=== PATIENT | male | born 1955 | race Caucasian/White ===

== ENCOUNTER 2018-02-25 09:05 | Day surgery (SDC) | END 2018-02-25 14:31 | disposition home or self-care (01) ==

== ENCOUNTER 2018-06-30 07:26 | Day surgery (SDC) | payer OTHER ==
[2018-06-30] VITALS (10 sets, daily range): BP systolic 109–131; BP diastolic 63–76; PULSE 50–60; RESP 14–18; Ht 170.2 cm; Wt 67.9 kg
[~2018-06-30] VITALS: Ht 170.2 cm; Wt 67.9 kg
[~2018-06-30 07:26] MED LIST: ASPI-903 PO; LEVOTHYROXINE DAILY; LISINOPRIL DAILY; LORA1TAB PO; PEPCID DAILY; [UNRECOGNIZED DRUG - OTHER]; [UNRECOGNIZED DRUG - OTHER]
--- NOTE | 2018-06-30 07:40 | NUR ---
RN NOTE: OR CHARGE NURSE CALLED INFORMED ME DR WANTS PT DOWN SOON POSSIBLE, THEY WILL GIVE THE EYE DROPS DOWNSTAIRS.
[2018-06-30] MEDS ORDERED: LISI-471 PO (07:51)
[2018-06-30] MEDS ORDERED: PANT40TA3 PO (07:52)
[2018-06-30] MEDS ORDERED: LORA10TA3 PO (07:52)
[2018-06-30] MEDS ORDERED: FER325 PO (07:53)
[2018-06-30] MEDS ORDERED: METO-448 PO (07:53)
[2018-06-30] MEDS ORDERED: LEVO137T26 PO (07:53)
[2018-06-30] MEDS ORDERED: MIRT30TA5 PO (07:54)
[2018-06-30] MEDS ORDERED: OLAN10TA7 PO (07:54)
[2018-06-30] MEDS ORDERED: PRED5DRO20 LEFT EYE (07:56)
[2018-06-30] MEDS ORDERED: TOBR5DRO46 LEFT EYE (07:57)
[2018-06-30] MEDS ORDERED: EPINEPHrine 1 MG INJ ONE ×2 (08:12→09:39)
[2018-06-30] MEDS ORDERED: GENTAMICIN 80 MG INJ ONE (08:12)
[2018-06-30] MEDS ORDERED: NA HYALURONATE/CHONDROITIN 0.5 ML SYG ONE (08:12)
[2018-06-30] MEDS ORDERED: TOBRAMYCIN/DEXAMETH 3.5 GM OPH OINT ONE (08:12)
[2018-06-30] MEDS ORDERED: VANCOMYCIN 1 GM INJ ONE (08:12)
[2018-06-30] MEDS ORDERED: TETRACAINE 0.5% 4 ML OPH ONE (08:12)
--- NOTE | 2018-06-30 08:15 | NUR ---
RN NOTE: PT DOWN TO HOLDING, INFORMED [place] IN HOLDING ABOUT EYE DROPS
[2018-06-30] MEDS ORDERED: NEOMYC/POLYMYX/DEXAM 3.5GM OPH OINT OPER ONE (08:30)
[2018-06-30] MEDS ORDERED: BALANCED SALT SOLN OPH IRRIG 500 ML, EPINEPHrine 0.1 MG, GENTAMICIN 4 MG, VANCOMYCIN 10 MG IRR SCH ×4 (08:30)
[2018-06-30] MEDS ORDERED: TOBRAMYCIN 0.3% 5 ML OPH OPER SCH (08:30)
[2018-06-30] MEDS ORDERED: TETRACAINE 0.5% 4 ML OPH OPER SCH (08:30)
[2018-06-30] MEDS ORDERED: LIDOCAINE 4% (MPF) 5 ML INJ INJ SCH (08:30)
[2018-06-30] MEDS ORDERED: TROPICAMIDE 1% 3 ML OPH OPER SCH (08:30)
[2018-06-30] MEDS ORDERED: PHENYLephrine 2.5% 15 ML OPH OPER SCH (08:30)
[2018-06-30] MEDS ORDERED: APRACLONIDINE 1% 0.1 ML OPH OPER PRN (08:30)
[2018-06-30] MEDS ORDERED: ACETAMINOPHEN 500 MG TAB PO ONE (08:30)
[2018-06-30] MEDS ORDERED: ACETAZOLAMIDE 250 MG TAB PO PRN (08:30)
[2018-06-30] MEDS ORDERED: PREDNISOLONE ACET 1% 5 ML OPH OPER SCH (08:30)
[2018-06-30] MEDS ORDERED: LIDOCAINE 2% (SDV) 5 ML INJ ONE (08:36)
--- NOTE | 2018-06-30 08:38 | PREAC ---
Date/Time of Note Date/Time of Note DATE: 06/30/18 TIME: 08:36 Anesthesia Eval and Record Evaluation Time Pre-Procedure Interview DATE: 06/30/18 TIME: 08:36 Age 63 Sex male NPO: 8 hrs Preoperative diagnosis left eye cataract Planned procedure left eye cataract extraction with lens implant Past Medical History Past Medical History: Includes Cardio: HTN, VT, CAD, PTCA/Stent Endo: Hypothyroid Neuro: CVA GI: GERD Psych: Depression Surgery & Anesthesia Issues No known issue Meds Anticoagulation: No Beta Hari within 24 hr: Yes Reason Beta Hari not given: Bradycarida, Hypotension Reported Medications Tobramycin Sulfate* (Tobrex*) 0.3% - 5 Ml Drops, 1 DROP LEFT EYE QID, #1 EA 06/30/18 Prednisolone Acetate* (Pred Forte*) 5 Ml Susp, 1 DROP LEFT EYE QID, EA 06/30/18 Mirtazapine* (Mirtazapine*) 30 Mg Tablet, 30 MG PO HS, TAB 06/30/18 Olanzapine* (Zyprexa*) 10 Mg Tablet, 10 MG PO DAILY, #30 TAB 06/30/18 Levothyroxine Sodium* (Levoxyl*) 137 Mcg Tablet, 137 MCG PO BEFORE BREAKFAST, # 30 TAB 06/30/18 Ferrous Sulfate* (Ferrous Sulfate*) 325 Mg Tabec, 325 MG PO DAILY, TAB 06/30/18 Metoprolol Tartrate* (Lopressor*) 25 Mg Tab, 25 MG PO BID, #60 TAB 06/30/18 Pantoprazole* (Protonix*) 40 Mg Tablet.dr, 40 MG PO DAILY, TAB 06/30/18 Loratadine* (Loratadine*) 10 Mg Tablet, 10 MG PO DAILY, #30 TAB 06/30/18 Lisinopril* (Lisinopril*) 20 Mg Tablet, 20 MG PO DAILY, #30 TAB 06/30/18 Discontinued Reported Medications Lorazepam* (Lorazepam*) 1 Mg Tablet, 1 MG PO HS PRN for ANXIETY, #30 TAB 02/25/18 Aspirin* (Aspirin* Chew) 81 Mg Tab.chew, 81 MG PO DAILY, TAB.CHEW 02/25/18 [Ativan Hs] No Conflict Check 02/25/18 [Pravastatin Daily] No Conflict Check 02/25/18 [Levothyroxine Daily] No Conflict Check 02/25/18 [Lisinopril Daily] No Conflict Check 02/25/18 [Pepcid Daily] No Conflict Check 02/25/18 Current Medications Tropicamide (Mydriacyl 1%) 1 drop Q5 MIN X3 OPER ; Start 06/30/18 at 08:30 Phenylephrine HCl (Ak-Dilate 2.5%) 1 drop Q5 MIN X 3 OPER ; Start 06/30/18 at 08:30 Tetracaine HCl (Tetracaine 0.5% Steri-Unit Josette) 2 drop ONCE (PRE-OP) OPER ; Start 06/30/18 at 08:30 Lidocaine (Xylocaine 4% (Mpf)) 5 ml INTRA-OP INJ ; Start 06/30/18 at 08:30 Sod Cl/Ca Cl/Mg Cl/Pot Cl/ Epinephrine/ Gentamicin Sulfate/ Vancomycin HCl INTRA-OP IRR ; Start 06/30/18 at 08:30 Tobramycin Sulfate (Tobrex 0.3% Oph Drop) 1 drop INTRA-OP OPER ; Start 06/30/18 at 08:30 Prednisolone Acetate (Pred-Forte 1%) 1 drop INTRA-OP OPER ; Start 06/30/18 at 08:30 Acetazolamide (Diamox) 250 mg POST-OP PRN PO X1 IF TRABECULECTOMY PERFORMED; Start 06/30/18 at 08:30 Apraclonidine HCl (Iopidine 1% Oph) 1 drop POST-OP PRN OPER IF UNABLE TO TAKE DIAMOX; Start 06/30/18 at 08:30 Meds reviewed: Yes Allergies Coded Allergies: No Known Allergy (Unverified , 06/30/18) Allergies Reviewed: Yes Labs/Studies Labs Reviewed: Reviewed by anesthesiologist test: N/A Studies: ECG (sinus rhythm) Pre-procedure Exam Airway: Adequate mouth opening, Adequate thyromental dist Mallampati: Mallampati II Teeth: Normal Lung: Normal Heart: Normal ASA Physical Status ASA physical status: 3 Emergency: None Planned Anesthetic General/MAC: MAC Planned Pain Management Parenteral pain med Pre-operative Attestations Prior to commencing anesthesia and surgery, the patient was re-evaluated, there was verification of: *The patient's identity *The results of appropriate recent lab work and preoperative vital signs *The above evaluation not changing prior to induction *Anesthetic plan, risk benefits, alternative and complications discussed with patient/family; questions answered; patient/family understands, accepts and wishes to proceed. MAKEDA MAGDALENO MD Jun 30, 2018 08:38
[2018-06-30] MEDS ORDERED: PROCHLORPERAZINE 10 MG INJ IV PRN (09:00)
[2018-06-30] MEDS ORDERED: LABETALOL HCL 20MG INJ IV PRN (09:00)
[2018-06-30] MEDS ORDERED: ONDANSETRON 4 MG INJ IV PRN (09:00)
[2018-06-30] MEDS ORDERED: MEPERIDINE 25 MG INJ IV PRN (09:00)
[2018-06-30] MEDS ORDERED: FENTAnyl 50 MCG/ML VIAL IV PRN (09:00)
[2018-06-30] MEDS ORDERED: DIPHENHYDRAMINE 50 MG INJ IV PRN (09:00)
[2018-06-30] MEDS ORDERED: hydrALAzine 20 MG INJ IV PRN (09:00)
[2018-06-30] MEDS ORDERED: HYDROmorphONE 1 MG/5 ML IV SYRINGE IV PRN ×3 (09:00)
[2018-06-30] MEDS ORDERED: TRYPAN BLUE 0.5 ML SYG IO ONE (09:12)
[2018-06-30] MEDS ORDERED: MIDAZOLAM 1 MG/ML 2 ML INJ ONE (09:22)
[2018-06-30] MEDS ORDERED: FENTAnyl 50 MCG/ML VIAL ONE (09:24)
--- NOTE | 2018-06-30 10:22 | PAC ---
Date/Time of Note Date/Time of Note DATE: 06/30/18 TIME: 10:21 Post-Anesthesia Notes Post-Anesthesia Note Last documented vital signs Vital Signs Date Temp Pulse Resp B/P (MAP) Pulse Ox O2 O2 Flow FiO2 Time Delivery Rate 06/30/18 97.9 60 18 131/76 18 Room Air 08:48 (94) Activity: WNL Respiratory function: WNL Cardiovascular function: WNL Mental status: Baseline Pain reasonably controlled: Yes Hydration appropriate: Yes Nausea/Vomiting absent: Yes Comments BP: 101/60 HR: 60 RR: 15 T: 98 SaO2: 99% MAKEDA MAGDALENO MD Jun 30, 2018 10:22
--- NOTE | 2018-06-30 11:46 | OPR ---
Date/Time of Note Date/Time of Note DATE: 06/30/18 TIME: 11:41 Operative Report Preoperative Diagnosis CatatCT LEFT EYE Postoperative Diagnosis SAME Operation/Procedure Performed CATARACT REMOVAL WITH LENS IMPLANT OS Surgeon see signature line Political Research Scientist NONE Anesthesia Type: MAC Estimated Blood Loss: none Transfusion none Specimen NONE Grafts/Implants none Complications none Procedure Description CATARACT REMOVAL WITH LENS IMPLANT LEFT EYE CHAKA HERNANDEZ MD Jun 30, 2018 11:46
--- NOTE | 2018-06-30 11:48 | NUR ---
D/C INSTRUCTIONS UNDERSTOOD, D/C CRITERIA MET, POST OP SITE CLEAN AND DRY, DENIES PAIN
== END 2018-06-30 11:48 | disposition home or self-care (01) ==
LOC: SDS 07:26
PROVIDERS: ATTEND Ophthalmology
DX: H26.8 Other specified cataract (principal); Z86.73 Personal history of transient ischemic attack (TIA), and cerebral infarction without residual deficits; E03.9 Hypothyroidism, unspecified; I10 Essential (primary) hypertension; I25.2 Old myocardial infarction
CPT/HCPCS: 66984; J0171; J1580; J2250; J3010; J3370; V2632; Z7512; Z7610